=== PATIENT | female | born 1975 | race Hispanic/Latino ===

== ENCOUNTER 2023-07-13 22:08 | Observation (INO) | payer MEDICAID, SELFPAY ==
--- NOTE | ~2023-07-13 | CT_ITS ---
EXAMINATION: CT brain wo con DATE: 07/14/2023 00:23 INDICATION: Head injury. Weakness. TECHNIQUE: Computed tomography (CT) of the head was performed without intravenous contrast. The mA wa s adjusted according to patient size. Iterative reconstruction technique was employed. The dose-lengt h product was 605.33 mGy-cm. COMPARISON: None FINDINGS: There is no intracranial hemorrhage, acute infarction, or abnormal intracranial mass lesion . The ventricles are normal in size. There is mild mucosal thickening in the paranasal sinuses. The o rbits are normal. The mastoid air cells are normal. IMPRESSION: 1. Normal brain. Reviewed, dictated and finalized at location E. IMPRESSION: 1. Normal brain.
--- NOTE | ~2023-07-13 | XR_ITS ---
XR chest 2V DATE: 07/13/2023 23:56 INDICATION: Shortness of breath TECHNIQUE: AP and lateral views COMPARISON: None FINDINGS: Normal heart size. No hilar or mediastinal enlargement. No pulmonary infiltrate or consolid ation, pleural effusion or pulmonary vascular congestion or pneumothorax. IMPRESSION: No active cardiopulmonary disease Reviewed, dictated and finalized at location A.
[2023-07-13 22:06] VITALS: BP 141/97; PULSE 105; RESP 16; TEMP 36.3; O2SAT 97
--- NOTE | 2023-07-13 22:28 | ECG_ITS ---
Measurements Intervals [place] Rate: 102 P: 51 MN: 158 QRS: 68 QRSD: 102 T: 17 QT: 396 QTc: 516 Interpretive Statements SINUS TACHYCARDIA DELAYED PRECORDIAL R/S TRANSITION MINIMAL Q WAVES- INFERIOR LEADS BASELINE ARTIFACT- I, II, III, AVR, AVL, AVF BORDERLINE ECG NO PREVIOUS ECG AVAILABLE FOR COMPARISON Electronically Signed On 07-14-2023 7:48:10 CDT by Edmar Olivera D.O.
--- NOTE | 2023-07-13 23:03 | ED.FALL ---
HPI - Fall General Chief Complaint: Fall Stated Complaint: sob Time Seen by Provider: 07/13/23 22:28 Source: patient and old records reviewed Mode of arrival: EMS Limitations: no limitations and language barrier History of Present Illness HPI Narrative: Patient is a 48 y/o female who presents to the ED via EMS with report of weakness. Patient is primarily speaking. 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 Patient reports she slipped and fell 5 days ago after tripping on a curb. She did hit her head but denied LOC. She was seen in the ED at that time and had several other pain. Imaging was unremarkable. She was discharged back home. Since then, patient reports that she has been feeling extremely weak. She states her arms have been cramping and it feels like her legs will not work. She states she has been unable to get up and move around much due to the pain. She has been using a bedpan at home and having her neighbor bring over food for her. She denies any significant pain. Denies dizziness, lightheadedness, vision changes, focal weakness, numbness, nausea, vomiting, abdominal pain. Patient currently complains of chest tightness that began since being in the ED. Denies difficulty breathing, pleuritic pain, shortness of breath. Review of Systems Review of Systems: CONSTITUTIONAL: Denies fever, chills, or sweats. EYES: Denies visual changes. CARDIOVASCULAR: See HPI. RESPIRATORY: Denies cough or dyspnea. GASTROINTESTINAL: Denies abdominal pain, nausea, vomiting, or diarrhea. GENITOURINARY: Denies dysuria or hematuria. NEUROLOGIC: See HPI. All systems reviewed & are unremarkable except as noted in HPI and below Exam Narrative: GENERAL: Anxious appearing, well-nourished, non-toxic, in no acute distress. HEAD: Normocephalic, atraumatic. NECK: Supple. No adenopathy, no masses. RESPIRATORY: Airway patent, respirations nonlabored. Clear to auscultation bilaterally, no rales, rhonchi, wheezing. CARDIOVASCULAR: Regular rate and rhythm without murmurs, rubs, or gallops. Radial pulses 2+ and equal bilaterally. ABDOMINAL: Soft, no tenderness throughout abdomen, nondistended, no hepatosplenomegaly. Normoactive BS. MUSCULOSKELETAL: Moves all extremities. Strength/ROM intact without gross deformities. SKIN: Warm, dry, normal color. No rashes. NEURO: A&O X3. Speech clear. Cranial nerves II-XII grossly intact. Steady gait. No ataxic movements. Diffusely weak, difficulty even sitting up in ED bed. No focal weakness. Strength equal in upper and lower extremities bilaterally. Sensation intact. PSYCHIATRIC: Anxious, tearful. Normal interaction. Course Vital Signs Vital signs: Vital Signs Temperature 97.4 F L 07/13/23 22:06 Pulse Rate 105 H 07/13/23 22:06 Respiratory Rate 16 07/13/23 22:06 Blood Pressure 141/97 H 07/13/23 22:06 Pulse Oximetry 97 07/13/23 22:06 Oxygen Delivery Room Air 07/13/23 22:06 Temperature 97.4 F L 07/13/23 22:06 Pulse Rate 104 H 07/14/23 02:15 Respiratory Rate 15 07/14/23 02:15 Blood Pressure 142/96 H 07/14/23 02:15 Pulse Oximetry 100 07/14/23 02:15 Oxygen Delivery Room Air 07/13/23 22:06 MDM - Fall MDM Narrative Medical decision making narrative: Patient presented to ED 5 days status post head injury, reporting weakness, general malaise. Vital stable upon arrival. No focal deficits seen on exam. Patient mildly anxious and tearful. CT brain obtained as patient did not receive this when she was first evaluated after the fall. CT brain negative. EKG without concerning ST changes. Troponin negative. Chest x-ray interpreted by myself without acute abnormalities. CBC without significant abnormalities. No leukocytosis. CMP showing sodium 131, potassium 2.4, chloride low at 92. Stable kidney function. Magnesium within normal limits at 2.0. Transaminitis noted. Patient denying any abdominal pain, no tenderness on exam. IV and p.o. potassium started. Fluids ongoi
[2023-07-13 23:04] LABS: Basophils Percent Auto 0.3 % (0.2-1.2); Eosinophils Percent Auto 0.3 % (0-4.4); Hematocrit 36.2 % (37.0-47.0); Hemoglobin 12.8 g/dL (12.0-15.0); Immature Granulocyte Absolute 0.02 K/mm3 (0.00-0.031); Immature Granulocyte Percent A 0.2 % (0-0.5); Lymphocytes Percent Auto 12.6 % (18.3-44.2); Mean Corpuscular HGB Conc 35.4 g/dl (32-36); Mean Corpuscular Hemoglobin 34.6 pg (26-34); Mean Corpuscular Volume 97.8 fl (80-100); Mean Platelet Volume 9.6 fl (7.4-10.4); Monocytes Absolute Auto 0.5 K/mm3 (0.1-0.6); Monocytes Percent Auto 5.4 % (2.6-8.5); Neutrophils Absolute Auto 7.1 K/mm3 (1.3-6.7); Neutrophils Percent Auto 81.2 % (45.5-73.1); Platelet Count Result 267 k/mm3 (150-375); Red Cell Distribution Width 13.9 % (11.5-14.5); White Blood Count 8.7 K/mm3 (4.5-10.0)
[2023-07-13 23:14] LABS: Prothrombin Time 13.3 Seconds (11.1-14.7)
[2023-07-13 23:15] LABS: Partial Thromboplastin Time 34.1 SECONDS (22.3-36.8)
[2023-07-13 23:28] LABS: NT Pro B Type Natriuretic Pept 93 pg/mL (19.9-100)
[2023-07-13 23:48] LABS: D Dimer < 0.27 ug/mL (<0.48)
[2023-07-14] VITALS (8 sets, daily range): BP systolic 111–157; BP diastolic 68–97; PULSE 85–104; RESP 15–18; TEMP 35.8–36.3; O2SAT 100; BMI 22.9; BMI 22.5
[2023-07-14 00:03] LABS: Troponin I < 0.012 ng/mL (0.000-0.034)
[2023-07-14 01:08] LABS: Alanine Aminotransferase 39 U/L (6-35); Albumin Level 3.6 g/dL (3.5-5.1); Alkaline Phosphatase 163 U/L (38-126); Anion Gap 6 mmol/L (8-16); Aspartate Amino Transferase 86 U/L (14-36); Bilirubin,Total 1.2 mg/dL (0.2-1.3); Blood Urea Nitrogen 10 mg/dL (7-17); Calcium 8.7 mg/dL (8.4-10.2); Carbon Dioxide 33 mmol/L (22-30); Chloride 92 mmol/L (98-107); Estimated CRCL calculation 122 ml/min; Estimated Glomerular Filt Rate > 60; Glucose 110 mg/dL (65-110); Potassium 2.4 mmol/L (3.4-5.0); Sodium 131 mmol/L (137-145)
[2023-07-14] MEDS: POTASSIUM CHLORIDE INJ 40 MEQ in SODIUM CHLORIDE 0.9% IV 500 ML 130 MEQ IVPB (01:47)
[2023-07-14] MEDS: POTASSIUM CHLORIDE 20 MEQ ER TABLET 40 MEQ PO (02:12)
[2023-07-14] MEDS: SODIUM CHLORIDE 0.9% IV 1,000 ML 999 ML IV CONT (02:15)
--- NOTE | 2023-07-14 02:43 | PM.IMHP ---
H&P: HPI History of Present Illness Date/Time: 07/14/23 02:43 Chief Complaint: She is a very pleasant 48 years old female who is brought to the ER for evaluation by EMS with complaints of weakness. Patient had a ground level fall 5 days ago after tripping on a curb, she was seen in the ED at that time but no fractures were found and she was discharged home. Patient states that since then she has been feeling extremely weak. She has cramping of her arms and legs are very weak as well. She has was unable to move and get up due to pain and weakness. She has been using bed aaron at home and her neighbor is bringing over food for her. Workup was done in the ER which showed severe hypokalemia with potassium level of 2.4. She is complaining of some diarrhea for the last few days he is semi solid in nature, which could be the cause of her hypokalemia. She was started on IV and p.o. potassium and starting to feel a little better. She is being placed under observation for potassium replacement and further management. Review of Systems Review of Systems: All systems reviewed & are unremarkable except as noted in HPI and below Meds Vital Signs Vital Signs - 24 hr 07/13/23 22:06 07/14/23 02:15 Temperature 36.3 C L Pulse Rate 105 H 104 H Respiratory Rate 16 15 Blood Pressure 141/97 H 142/96 H Pulse Oximetry 97 100 Oxygen Delivery Room Air Exam Narrative: PHYSICAL EXAMINATION: Vital signs: Please see the chart General physical exam: patient feels tired and fatigued, complains of generalized weakness Head/eyes: Atraumatic, EOMI, PERRLA ENT: Moist mucous membranes, nasal passages clear Neck: Supple, full range of motion, trachea midline CVS: S1 + S2 + 0, regular rate and rhythm, no murmurs Respiratory: Bilaterally fair air entry in both lung cleaning, mild B/L crackles, symmetric chest expansion, no distress Abdomen: Soft, non-tender, bowel sounds +ve, no organomegaly Extremities: No clubbing, no cyanosis, no edema, no calf tenderness Musculoskeletal: Moves all, adequate range of motion, no muscle spasms Skin: Warm, dry, no jaundice, no cyanosis Neurological: Awake, alert, oriented x 3, cranial nerves II-XII intact, no focal neurological deficits Psychiatric: Normal mood, non suicidal H&P: Results Labs Labs: Short CBC 07/13/23 Range/Units 22:53 WBC 8.7 (4.5-10.0) K/mm3 Hgb 12.8 (12.0-15.0) g/dL Hct 36.2 L (37.0-47.0) % Plt Count 267 (150-375) k/mm3 BMP 07/13/23 07/13/23 07/13/23 22:53 22:53 22:53 Sodium Cancelled 131 L Potassium Cancelled 2.4 L* Chloride Cancelled Carbon Dioxide BUN Creatinine Glucose Calcium 07/13/23 07/13/23 07/13/23 22:53 22:53 22:53 Sodium Potassium Chloride 92 L Carbon Dioxide Cancelled 33 H BUN Cancelled 10 Creatinine Cancelled Glucose Calcium 07/13/23 07/13/23 07/13/23 22:53 22:53 22:53 Sodium Potassium Chloride Carbon Dioxide BUN Creatinine 0.40 L Glucose Cancelled 110 Calcium Cancelled 8.7 Cardiac Enzymes 07/13/23 Range/Units 22:53 Troponin I < 0.012 (0.000-0.034) ng/mL Liver Function 07/13/23 07/13/23 07/13/23 Range/Units 22:53 22:53 22:53 Total Bilirubin Cancelled 1.2 AST Cancelled 86 H ALT Cancelled Alkaline Phosphatase Albumin 07/13/23 07/13/23 07/13/23 Range/Units 22:53 22:53 22:53 Total Bilirubin AST ALT 39 H Alkaline Phosphatase Cancelled 163 H Albumin Cancelled 3.6 Assessment and Plan Assessment and plan (1) Acute hypokalemia: Code(s): E87.6 - Hypokalemia Status: Acute (2) Weakness: Code(s): R53.1 - Weakness Status: Acute (3) Diarrhea: Qualifiers: Diarrhea type: unspecified type Qualified Code(s): R19.7 - Diarrhea, unspecified Code(s): R19.7 - Diarrhea, unspecified Status: Acute Plan Place patient
--- NOTE | 2023-07-14 04:00 | ADMGEN ---
This patient, shankar Mcginnis, was admitted to [facility] Surg Room 305-01 at 0325. Patient/family oriented to hospital policies and general routines including ID bracelet, bed and alarms, visiting hours, pain management, procedures, bathroom and other care routines, personal items, smoking policy, room service/diet, and visiting hours. Information on how to activate the Rapid Response Team has been discussed. Patient/Family are encouraged to report perceived risks to care and to ask questions if they do not understand what they are told or what they should do.
[2023-07-14 05:34] LABS: Toxigenic C. Diff POSITIVE (NEGATIVE)
[2023-07-14] MEDS: KCL 20MEQ/0.9% SOD CHL 1,000 ML 100 ML IV CONT ×2 (06:43→18:29)
[2023-07-14] MEDS: VANCOMYCIN ORAL 125 MG/2.5 ML SYRUP PO ×3 (06:43→17:38)
[2023-07-14] MEDS: metroNIDAZOLE 500 MG/ISO 100ML 500 MG/100 ML BAG 100 MG IVPB ×3 (06:43→21:54)
[2023-07-14 07:57] LABS: Anion Gap 5 mmol/L (8-16); Blood Urea Nitrogen 8 mg/dL (7-17); Calcium 7.7 mg/dL (8.4-10.2); Carbon Dioxide 24 mmol/L (22-30); Chloride 106 mmol/L (98-107); Estimated CRCL calculation 155 ml/min; Estimated Glomerular Filt Rate > 60; Glucose 105 mg/dL (65-110); Potassium 3.5 mmol/L (3.4-5.0); Sodium 135 mmol/L (137-145)
[2023-07-14] MEDS: GABAPENTIN 300 MG CAPSULE PO (07:59)
[2023-07-14] MEDS: FERROUS SULFATE 325 MG TABLET DR PO (07:59)
[2023-07-14] MEDS: DULoxetine HCL 30 MG CAPSULE.DR PO (07:59)
[2023-07-14] MEDS: ACETAMINOPHEN 325 MG TABLET 650 MG PO ×3 (07:59→17:38)
[2023-07-14] MEDS: LOPERAMIDE HCL 2 MG CAPSULE PO (11:51)
--- NOTE | 2023-07-14 12:33 | PM.IMPN ---
Progress Note: A&P Assessment and Plan (1) Acute hypokalemia: Code(s): E87.6 - Hypokalemia Status: Acute Assessment and Plan: status post IV and oral replacement, check with daily labs, check magnesium as well (2) Weakness: Code(s): R53.1 - Weakness Status: Acute Assessment and Plan: related to neuropathic pain and decreased sensation. Patient benefit intense therapy. PT OT ordered. (3) Diarrhea: Qualifiers: Diarrhea type: unspecified type Qualified Code(s): R19.7 - Diarrhea, unspecified Code(s): R19.7 - Diarrhea, unspecified Status: Acute Assessment and Plan: C diff positive. Patient is on oral vancomycin. (4) Clostridium difficile diarrhea: Code(s): A04.72 - Enterocolitis due to Clostridium difficile, not specified as recurrent Status: Acute (5) Peripheral neuropathy: Code(s): G62.9 - Polyneuropathy, unspecified Status: Acute Plan Patient needs assistance to stand and transition from bed to chair and back, related to neuropathy. Patient will need addition therapy after acute hospitalization PT/OT consult/treat Potassium replaced, daily labs ordered ? Patient seen and examined at bedside ? Collaborated with patient's nurse at the bedside in detail and addressed all concerns ? Labs, electrolytes, radiology, investigations and test results reviewed ? ED/Consult/Nursing/Ancilliary notes on the chart reviewed and appreciated Time Spent With Patient Time with patient: 25 - 35 minutes Subjective Date/time seen: 07/14/23 12:33 Interval history: Patient denies any pain, she is still having diarrheal stools, patient reports difficulty standing and walking related to neuropathic pain in her feet. Seems like patient would benefit therapy after discharge. Review of Systems Review of Systems: All systems reviewed & are unremarkable except as noted in HPI and below Exam Narrative: PHYSICAL EXAMINATION: General physical exam: patient feels tired and fatigued, complains of generalized weakness Head/eyes: Atraumatic, EOMI, PERRLA ENT: Moist mucous membranes, nasal passages clear Neck: Supple, full range of motion, trachea midline CVS: S1 + S2, regular rate and rhythm, no murmurs Respiratory: Bilaterally fair air entry in both lung cleaning, mild B/L crackles, symmetric chest expansion, no distress Abdomen: Soft, non-tender, bowel sounds, no organomegaly Extremities: No clubbing, no cyanosis, no edema, no calf tenderness Musculoskeletal: Moves all, adequate range of motion, no muscle spasms Skin: Warm, dry, no jaundice, no cyanosis Neurological: Awake, alert, oriented x 3, cranial nerves II-XII intact, Weakness with standing and ambulating to the bed which patient blames on her neuropathy Psychiatric: Normal mood, non suicidal Objective Data Vital Signs Vital Signs: Vital Signs - 24 hr 07/13/23 22:06 07/14/23 02:15 07/14/23 03:52 Temperature 36.3 C L 35.8 C L Pulse Rate 105 H 104 H 91 Respiratory Rate 16 15 16 Blood Pressure 141/97 H 142/96 H 157/97 H Pulse Oximetry 97 100 100 Oxygen Delivery Room Air 07/14/23 05:07 07/14/23 04:00 07/14/23 07:55 Temperature Pulse Rate 94 Respiratory Rate Blood Pressure Pulse Oximetry Oxygen Delivery Room Air Room Air 07/14/23 10:30 07/14/23 08:00 Temperature Pulse Rate 102 H Respiratory Rate Blood Pressure Pulse Oximetry Oxygen Delivery Room Air Intake/Output Intake/Output: Intake & Output 07/11/23 07/12/23 07/13/23 07/14/23 23:59 23:59 23:59 23:59 Intake Total 880 Output Total 0 Balance 880 Meds/Results Medications: Active Medications Generic Name Dose Route Start Last Admin Trade Name Freq PRN Reason Stop Dose Admin Acetaminophen 650 mg 07/14/23 02:57 07/14/23 11:50 Acetaminophen 325 Mg Tablet PO 650 mg Q4H PRN Administration Mild Pain (1-3) or Fever Duloxetine HCl 30
[2023-07-14 14:37] LABS: Anion Gap 7 mmol/L (8-16); Blood Urea Nitrogen 7 mg/dL (7-17); Calcium 8.2 mg/dL (8.4-10.2); Carbon Dioxide 24 mmol/L (22-30); Chloride 105 mmol/L (98-107); Estimated CRCL calculation 122 ml/min; Estimated Glomerular Filt Rate > 60; Glucose 125 mg/dL (65-110); Potassium 3.6 mmol/L (3.4-5.0); Sodium 136 mmol/L (137-145)
[2023-07-15] VITALS (7 sets, daily range): BP systolic 126–149; BP diastolic 71–94; PULSE 83–102; RESP 14–20; TEMP 35.7–36.9; O2SAT 100
[2023-07-15] MEDS: VANCOMYCIN ORAL 125 MG/2.5 ML SYRUP PO ×4 (00:25→17:18)
[2023-07-15 01:34] LABS: Appearance Urine Clear (Clear); Bilirubin Urine Negative (Negative); Blood Urine Negative (Negative); Color Urine Yellow (Yellow); Glucose Urine UA Negative (Negative); Ketones Urine Negative (Negative); Leukocyte Esterase Ur Negative LEU/UL (Negative); Nitrate Urine Negative (Negative); Protein Urine Negative (Negative); Specific Grav Ur 1.012 (1.001-1.035); Urobilinogen Urine 0.2 mg/dL (<2.0)
[2023-07-15 01:40] LABS: Add Urine Microscopic? NO
[2023-07-15] MEDS: metroNIDAZOLE 500 MG/ISO 100ML 500 MG/100 ML BAG 100 MG IVPB ×3 (05:41→20:48)
[2023-07-15 06:43] LABS: Basophils Percent Auto 0.9 % (0.2-1.2); Eosinophils Absolute Auto 0.1 K/mm3 (0-0.3); Eosinophils Percent Auto 2.7 % (0-4.4); Hematocrit 33.4 % (37.0-47.0); Hemoglobin 11.2 g/dL (12.0-15.0); Immature Granulocyte Absolute 0.01 K/mm3 (0.00-0.031); Immature Granulocyte Percent A 0.3 % (0-0.5); Lymphocytes Absolute Auto 0.91 K/mm3 (0.9-3.2); Lymphocytes Percent Auto 27.2 % (18.3-44.2); Mean Corpuscular HGB Conc 33.5 g/dl (32-36); Mean Corpuscular Hemoglobin 34.8 pg (26-34); Mean Corpuscular Volume 103.7 fl (80-100); Mean Platelet Volume 9.4 fl (7.4-10.4); Monocytes Absolute Auto 0.2 K/mm3 (0.1-0.6); Monocytes Percent Auto 6.6 % (2.6-8.5); Neutrophils Absolute Auto 2.1 K/mm3 (1.3-6.7); Neutrophils Percent Auto 62.3 % (45.5-73.1); Platelet Count Result 214 k/mm3 (150-375); Red Blood Count 3.22 M/mm3 (4.2-5.4); Red Cell Distribution Width 14.6 % (11.5-14.5); White Blood Count 3.3 K/mm3 (4.5-10.0)
[2023-07-15 06:52] LABS: Alanine Aminotransferase 27 U/L (6-35); Albumin Level 2.8 g/dL (3.5-5.1); Alkaline Phosphatase 115 U/L (38-126); Anion Gap 6 mmol/L (8-16); Aspartate Amino Transferase 45 U/L (14-36); Bilirubin,Total 0.7 mg/dL (0.2-1.3); Blood Urea Nitrogen 3 mg/dL (7-17); Calcium 8.1 mg/dL (8.4-10.2); Carbon Dioxide 23 mmol/L (22-30); Chloride 107 mmol/L (98-107); Estimated CRCL calculation 122 ml/min; Estimated Glomerular Filt Rate > 60; Glucose 93 mg/dL (65-110); Potassium 3.3 mmol/L (3.4-5.0); Sodium 136 mmol/L (137-145)
[2023-07-15] MEDS: FERROUS SULFATE 325 MG TABLET DR PO (08:53)
[2023-07-15] MEDS: GABAPENTIN 300 MG CAPSULE PO (08:53)
[2023-07-15] MEDS: DULoxetine HCL 30 MG CAPSULE.DR PO (08:53)
[2023-07-15] MEDS: POTASSIUM CHLORIDE 20 MEQ ER TABLET 40 MEQ PO (08:53)
[2023-07-15] MEDS: KCL 20MEQ/0.9% SOD CHL 1,000 ML 100 ML IV CONT ×2 (11:14→20:48)
--- NOTE | 2023-07-15 11:49 | PM.IMPN ---
Progress Note: A&P Assessment and Plan (1) Acute hypokalemia: Code(s): E87.6 - Hypokalemia Status: Acute Assessment and Plan: status post IV and oral replacement, check with daily labs, check magnesium as well (2) Weakness: Code(s): R53.1 - Weakness Status: Acute Assessment and Plan: related to neuropathic pain and decreased sensation. Patient benefit intense therapy. PT OT ordered. Patient reportedly unable to afford acute rehabilitation or home health that she has no insurance coverage and does not qualify for Medicaid. (3) Diarrhea: Qualifiers: Diarrhea type: unspecified type Qualified Code(s): R19.7 - Diarrhea, unspecified Code(s): R19.7 - Diarrhea, unspecified Status: Acute Assessment and Plan: C diff positive. Patient is on oral vancomycin. Decreased amount of diarrheal stools and no abdominal pain (4) Clostridium difficile diarrhea: Code(s): A04.72 - Enterocolitis due to Clostridium difficile, not specified as recurrent Status: Acute Assessment and Plan: Oral vancomycin for total 10 days of therapy (5) Peripheral neuropathy: Code(s): G62.9 - Polyneuropathy, unspecified Status: Acute Assessment and Plan: Affects both lower and upper extremities, no wounds or vascular concerns. Plan Patient needs assistance to stand and transition from bed to chair and back, related to neuropathy. Patient will need addition therapy after acute hospitalization PT/OT consult/treat Potassium replaced, daily labs ordered ? Patient seen and examined at bedside ? Collaborated with patient's nurse at the bedside in detail and addressed all concerns ? Labs, electrolytes, radiology, investigations and test results reviewed ? ED/Consult/Nursing/Ancilliary notes on the chart reviewed and appreciated Unfortunately patient does not qualify for Medicaid coverage and does not have any health insurance. She does not have primary care so she will be referred to on-call primary care upon discharge. Patient cannot afford intense rehabilitation or even home health. Time Spent With Patient Time with patient: 25 - 35 minutes Subjective Date/time seen: 07/15/23 11:49 Interval history: Patient reports no pain, only 1 diarrheal stool, she feels fine except for difficulty ambulating and using her hands related to neuropathy. Patient is not able to afford rehabilitation placement. Her son states that he will purchase the necessary antibiotics with [facility] but is unable to afford prolonged therapy. Patient does not have a primary care provider. She will be referred to on-call provider upon discharge. Anticipated discharge 07/16. Review of Systems Review of Systems: All systems reviewed & are unremarkable except as noted in HPI and below Exam Narrative: PHYSICAL EXAMINATION: General physical exam: patient feels tired and fatigued, complains of generalized weakness Head/eyes: Atraumatic, EOMI, PERRLA ENT: Moist mucous membranes, nasal passages clear Neck: Supple, full range of motion, trachea midline CVS: S1 + S2, regular rate and rhythm, no murmurs Respiratory: Bilaterally fair air entry in both lung cleaning, mild B/L crackles, symmetric chest expansion, no distress Abdomen: Soft, non-tender, bowel sounds, no organomegaly Extremities: No clubbing, no cyanosis, no edema, no calf tenderness Musculoskeletal: Moves all, adequate range of motion, no muscle spasms Skin: Warm, dry, no jaundice, no cyanosis Neurological: Awake, alert, oriented x 3, cranial nerves II-XII intact, Weakness with standing and ambulating to the bed which patient blames on her neuropathy Psychiatric: Normal mood, non suicidal Objective Data Vital Signs Vital Signs: Vital Signs - 24 hr 07/14/23 12:00 07/14/23 12:53 07/14/23 14:00 Temperature 36.3 C L Pulse Rate 87 93 Respiratory Rate 16 Blood Pressure 148/93 H Pulse Oximetry 100 Oxyge
[2023-07-15 23:10] LABS: Glucose Point of Care 131 mg/dl (65-105)
[2023-07-16] VITALS: PULSE 93
[2023-07-16 04:00] VITALS: PULSE 87
[2023-07-16 06:00] VITALS: BP 145/89; PULSE 90; RESP 16; TEMP 36.9; O2SAT 100
[2023-07-16] MEDS: VANCOMYCIN ORAL 125 MG/2.5 ML SYRUP PO ×3 (06:12→12:57)
[2023-07-16 06:35] LABS: Basophils Percent Auto 0.5 % (0.2-1.2); Eosinophils Absolute Auto 0.1 K/mm3 (0-0.3); Hematocrit 33.9 % (37.0-47.0); Immature Granulocyte Absolute 0.01 K/mm3 (0.00-0.031); Immature Granulocyte Percent A 0.3 % (0-0.5); Lymphocytes Absolute Auto 0.99 K/mm3 (0.9-3.2); Lymphocytes Percent Auto 26.9 % (18.3-44.2); Mean Corpuscular HGB Conc 32.4 g/dl (32-36); Mean Corpuscular Hemoglobin 33.8 pg (26-34); Mean Corpuscular Volume 104.3 fl (80-100); Mean Platelet Volume 9.5 fl (7.4-10.4); Monocytes Absolute Auto 0.2 K/mm3 (0.1-0.6); Monocytes Percent Auto 4.6 % (2.6-8.5); Neutrophils Absolute Auto 2.4 K/mm3 (1.3-6.7); Neutrophils Percent Auto 64.7 % (45.5-73.1); Platelet Count Result 238 k/mm3 (150-375); Red Blood Count 3.25 M/mm3 (4.2-5.4); Red Cell Distribution Width 14.6 % (11.5-14.5); White Blood Count 3.7 K/mm3 (4.5-10.0)
[2023-07-16 06:52] LABS: Alanine Aminotransferase 27 U/L (6-35); Albumin Level 2.7 g/dL (3.5-5.1); Alkaline Phosphatase 115 U/L (38-126); Anion Gap 5 mmol/L (8-16); Aspartate Amino Transferase 60 U/L (14-36); Bilirubin,Total 0.7 mg/dL (0.2-1.3); Calcium 8.2 mg/dL (8.4-10.2); Carbon Dioxide 22 mmol/L (22-30); Chloride 110 mmol/L (98-107); Estimated CRCL calculation 100 ml/min; Estimated Glomerular Filt Rate > 60; Glucose 97 mg/dL (65-110); Potassium 4.1 mmol/L (3.4-5.0); Sodium 137 mmol/L (137-145)
[2023-07-16] MEDS: metroNIDAZOLE 500 MG/ISO 100ML 500 MG/100 ML BAG 100 MG IVPB (06:54)
[2023-07-16 06:55] LABS: Blood Urea Nitrogen < 2 mg/dL (7-17)
[2023-07-16] MEDS: DULoxetine HCL 30 MG CAPSULE.DR PO (09:06)
[2023-07-16] MEDS: FERROUS SULFATE 325 MG TABLET DR PO (09:06)
[2023-07-16] MEDS: GABAPENTIN 300 MG CAPSULE PO (09:06)
--- NOTE | 2023-07-16 09:17 | PM.DS ---
DS: Admitting Diagnosis Discharge Date 07/16/2023 Admitting Diagnosis Acute hypokalemia, weakness, diarrhea DS: Discharge Diagnosis Discharge Diagnosis (1) Acute hypokalemia: Code(s): E87.6 - Hypokalemia Status: Acute (2) Weakness: Code(s): R53.1 - Weakness Status: Acute (3) Diarrhea: Qualifiers: Diarrhea type: unspecified type Qualified Code(s): R19.7 - Diarrhea, unspecified Code(s): R19.7 - Diarrhea, unspecified Status: Acute (4) Clostridium difficile diarrhea: Code(s): A04.72 - Enterocolitis due to Clostridium difficile, not specified as recurrent Status: Acute (5) Peripheral neuropathy: Code(s): G62.9 - Polyneuropathy, unspecified Status: Acute Plan Patient not agreeable to skilled rehab/home health upon discharge. Reportedly has medical insurance coverage but still declines further therapy services outside hospital stay. DS: Summary Hospital Course Reason for hospitalization: patient was admitted due to diarrhea with hypokalemia that was profound Hospital Course: Upon admission patient was found to be positive for C diff. she was treated with IV Flagyl and oral vancomycin. Physical therapy and occupational therapy were involved because patient seemed to be having difficulty transferring and ambulating due to peripheral neuropathy. Patient stated that this has been a challenge for a long time. She participated with therapy but adamantly refused home health or SNF/inpatient rehab. She states that she has plenty of family support. Her son stated that he would cover the cost of oral vancomycin and a good Rx prescription card was provided by Case Management. It is anticipated that the cost will be approximately 50 dollars. Patient reports that diarrhea has improved since hospitalization. Loperamide was discontinued to prevent toxic megacolon. Patient did not have any abdominal pain or abdominal tenderness throughout hospitalization. Her electrolytes improved with replacement. Status at Discharge Cognitive/behavioral status at discharge: awake alert oriented and pleasant Functional status at discharge: uses cane/walker Overall status at discharge: patient is not back to baseline Time Spent with Patient Time attestation: Total time spent providing and/or coordinating discharge services: Exam Narrative: General physical exam: patient appears tired and fatigued, complains of generalized weakness Head/eyes: Atraumatic, EOMI, PERRLA ENT: Moist mucous membranes, nasal passages clear Neck: Supple, full range of motion, trachea midline CVS: S1 + S2, regular rate and rhythm, no murmurs Respiratory: Bilaterally fair air entry in both lung cleaning, mild B/L crackles, symmetric chest expansion, no distress Abdomen: Soft, non-tender, bowel sounds, no organomegaly Extremities: No clubbing, no cyanosis, no edema, no calf tenderness Musculoskeletal: Moves all, adequate range of motion, no muscle spasms Skin: Warm, dry, no jaundice, no cyanosis Neurological: Awake, alert, oriented x 3, cranial nerves II-XII intact, Weakness with standing and ambulating to the bed which patient blames on her neuropathy Psychiatric: Normal mood, non suicidal DS: Data Data Completed and Pending Completed studies during hospitalization: Head CT, chest x-ray Labs on day of discharge: Labs from last 24 hours 07/16/23 07/15/23 05:57 23:02 WBC 3.7 L RBC 3.25 L Hgb 11.0 L Hct 33.9 L MCV 104.3 H MCH 33.8 MCHC 32.4 RDW 14.6 H Plt Count 238 MPV 9.5 Immature Gran % (Auto) 0.3 Neut % (Auto) 64.7 Lymph % (Auto) 26.9 [place] % (Auto) 4.6 Eos % (Auto) 3.0 Baso % (Auto) 0.5 Lymph # (Auto) 0.99 [place] # (Auto) 0.2 Eos # (Auto) 0.1 Baso # (Auto) 0.0 Abs Immat Gran (auto) 0.01 Absolute Neuts (auto) 2.4 Absolute Nucleated RBC 0.0 Nucleated RBC % 0.0 Sodium 137 Potassium 4.1 Chloride 110 H Carbon Dioxide
[2023-07-16 13:49] VITALS: BP 125/80; PULSE 92; RESP 16; TEMP 36.6; O2SAT 100
--- NOTE | 2023-07-20 13:12 | PC.NURSE ---
Patient's son called and stated that Vancomycin on discharge has not been received. This RN called [facility] pharmacy for clarification. Per pharmacist, IV solution formula was sent instead of capsules. This RN clarified medication with discharging hospitalist. Medication order to note, Vancomycin 125 mg capsule po Q6H x 10 days. Medication available at [facility] in [place] per [facility]. Medication transmitted. This RN attempted to reach son to update with medication status. No answer and voicemail left to return call.
== END 2023-07-16 14:10 | disposition home or self-care (01) ==
LOC: ANHED 07-14 02:40 → ANH3MEDSUR 07-15 10:42
PROVIDERS: Nurse Practitioner; Admitting Provider Family Medicine; Emergency Provider Physician Assistant; PCP Registered Nurse; Visit Provider Internal Medicine
DX: E87.6 Hypokalemia (principal); R53.1 Weakness; R19.7 Diarrhea, unspecified; A04.72 Enterocolitis due to Clostridium difficile, not specified as recurrent; G62.9 Polyneuropathy, unspecified; S09.90XA Unspecified injury of head, initial encounter; W01.198A Fall on same level from slipping, tripping and stumbling with subsequent striking against other object, initial encounter; Y92.9 Unspecified place or not applicable; E87.8 Other disorders of electrolyte and fluid balance, not elsewhere classified; R06.02 Shortness of breath; R94.31 Abnormal electrocardiogram [ECG] [EKG]; E87.1 Hypo-osmolality and hyponatremia
CPT/HCPCS: 36415; 70450; 71046; 80048; 80053; 81003; 82948; 83735; 83880; 84100; 84484; 85025; 85380; 85610; 85730; 87045; 87427; 87449; 87493; 93005; 96361; 96365; 96366; 96367; 96374; 97116; 97161; 97165; 97530; 97535; 99285; A9270; G0378; G0379; J1836; J3480; J7030; J7040

== ENCOUNTER 2024-10-20 14:51 | Emergency (ER) | payer MEDICAID, SELFPAY ==
--- NOTE | 2024-10-20 14:58 | ED.FEMALEGU ---
HPI - Female Genitourinary General Chief complaint: Urogenital-Female Stated complaint: Vaginal Problems/UTI Time Seen by Provider: 10/20/24 14:58 Source: patient, RN notes reviewed and old records reviewed Mode of arrival: ambulatory Limitations: no limitations History of Present Illness HPI Narrative: Patient presents accompanied by her son. She complains of 3 or 4 days of urinary frequency and burning, left-sided back and pelvic pain. She reports urine is dark. Pain only with urination. She denies any fever, chills, sweats. She has not been taking anything for her symptoms. She voices no other concerns or complaints at this time. Denies any injury or trauma Related Data Home Medications ?Medication ?Instructions ?Recorded ?Confirmed ?Last Taken ?Type gabapentin 300 mg capsule 300 mg PO DAILY 07/14/23 07/14/23 Unknown History Allergies Allergy/AdvReac Type Severity Reaction Status Date / Time No Known Allergies Allergy Verified 10/20/24 15:03 Review of Systems Review of Systems: All systems reviewed & are unremarkable except as noted in HPI and below Constitutional: Constitutional: Reports no additional constitutional complaints ENT: Reports system reviewed and no additional complaints, except as documented Cardiovascular: Cardiovascular: Reports no additional cardiovascular complaints Respiratory: Respiratory: Reports no additional respiratory complaints Gastrointestinal: Gastrointestinal: Reports no additional gastrointestinal complaints Genitourinary: Genitourinary: Reports as per HPI, Reports nocturia, Reports dysuria, Reports pelvic pain, Reports flank pain and Reports urinary urgency [facility] Past Medical History Medical History Peripheral neuropathy Social History Social History Smoking status: Never smoker Alcohol intake: former Substance use: never Lack of Transportation: No Lack of Food: Never True Current Housing: I Have Housing Concerned About Future Housing: No Difficulty Paying Gas/Electric Bills: No Difficulty Paying for Meds: No Currently Unemployed: No Education: Grade School Difficulty w/ Childcare or Family Care: No Spiritual care concerns: No Comments At the time of my signature, I reviewed and agree with the nursing past medical, surgical, social, and family history. There is no relevant family history pertinent to the patient complaint. Exam Const: General: cooperative, no acute distress, alert and awake Orientation/consciousness: oriented to person, oriented to place and oriented to time HENMT: Head: normal to inspection Mouth: Yes moist mucous membranes Resp: Effort & Inspection: normal respiratory effort and able to speak in complete sentences Auscultation: clear to auscultation bilaterally, no crackles, no rales, no rhonchi and no wheezes Cardio: Palpation: normal PMI Rate: regular rate Rhythm: regular rhythm Heart sounds: S1 normal heart sound present and S2 normal heart sound present : General: Yes bladder normal to palpation and Yes no CVA tenderness Neuro: General: oriented to person, oriented to place and oriented to time Cranial nerves: Yes CN's II-XII intact bilaterally Psych: Appearance: grossly normal Thought process: Normal thought process present Insight: Good insight present (Psych) Judgement: Good judgement present (Psych) Course Course Level of Care: Express Care Visit Vital Signs Vital signs: Vital Signs Temperature 97.7 F 10/20/24 15:00 Pulse Rate 118 H 10/20/24 15:00 Respiratory Rate 20 10/20/24 15:00 Blood Pressure 140/92 H 10/20/24 15:00 Pulse Oximetry 100 10/20/24 15:00 Oxygen Delivery Room Air 10/20/24 15:00 Temperature 97.7 F 10/20/24 15:00 Pulse Rate 118 H 10/20/24 15:00 Respiratory Rate 20 10/20/24 15:00 Blood Pressure 140/92 H 10/20/24 15:00 Pulse Oximetry 100 10/20/24 15:00 Oxygen Delivery Room Air 10/20/24 15:00 Reviewed MDM - Female Genitourinary MDM Narrative Medical decision making narrative: Reassuring physical exam. UA consistent with UTI. Elevated heart rate is noted. Patient reports that she is very nervous. She is nontoxic appearing and stable for discharge home Discharge instructions reviewed with patient, as well as provided in writing per nursing staff. The instructions also include specific and strict return/GO TO THE ER as well as f/u information. All questions have been answered, and the patient deny any further questions with discharge and discharge plan. Some parts of this dictation were generated by voice recognition software and may contain typographical and/or grammatical inaccuracies. Differential Diagnosis Differential diagnosis: Likely urinary tract infection and cystitis Medical Records Attestation: I reviewed the patient's medical records. Lab Data Attestation: I reviewed the patient's lab results. Labs: Lab Results 10/20/24 Range/Units 15:00 POC Urine Color Jade POC Urine Clarity Cloudy POC Urine pH 5.5 POC Ur Specif [place] 1.030 POC Urine Protein 2+ (Negative) POC Ur Glucose (UA) Negative (Negative) POC Urine Ketones 1+ (Negative) POC Urine Blood Negative (Negative) POC Urine Nitrite Positive (Negative) POC Urine Bilirubin 2+ (Negative) POC Urine Urobilinogen 2.0 POC U Leukocyte Esteras Negative (Negative) Discharge Plan Discharge Clinical Impression: UTI (urinary tract infection) Patient Disposition: Home, Self-Care Condition: Stable Instructions: Antibiotic Form, Urinary Tract Infection in Women (ED) Additional Instructions: Take medication as prescribed. Follow with primary care provider. Emergency department for new or worse symptoms Patient Language: Cymraes Prescriptions: New nitrofurantoin monohyd/m-cryst [Macrobid] 100 mg capsule 100 mg PO Q12H 5 Days Qty: 10 0RF Rx Instructions: must administer with a meal/food No Action gabapentin 300 mg capsule 300 mg PO DAILY Follow-up/Referrals: Sneha,WILBERT Arnold [Primary Care Provider] - 1 Week Time of Disposition: 15:23
[2024-10-20 15:00] VITALS: BP 140/92; PULSE 118; RESP 20; TEMP 36.5; O2SAT 100
[2024-10-20 19:44] LABS: EDUAAPPEAR Cloudy; EDUABILI 2+ (Negative); EDUABLOOD Negative (Negative); EDUACOLOR1 Amber; EDUAGLUCOSE Negative (Negative); EDUAKETONE 1+ (Negative); EDUALEUKO Negative (Negative); EDUANITRATE Positive (Negative); EDUAPH 5.5; EDUAPROTEIN 2+ (Negative)
== END 2024-10-20 15:30 | disposition home or self-care (01) ==
PROVIDERS: Emergency Provider Nurse Practitioner Family; PCP Registered Nurse
DX: N39.0 Urinary tract infection, site not specified (principal); B96.1 Klebsiella pneumoniae [K. pneumoniae] as the cause of diseases classified elsewhere
CPT/HCPCS: 81003; 87077; 87086; 87186; 99213; G0463

== ENCOUNTER 2025-05-04 13:01 | Emergency (ER) | payer SELFPAY ==
[2025-05-04 13:10] VITALS: BP 125/90; PULSE 93; RESP 18; TEMP 36.2; O2SAT 98
--- NOTE | 2025-05-04 13:35 | ED_ITS ---
HPI - Dental/Oral General Chief complaint: Dental/Oral Stated complaint: sore mouth Time Seen by Provider: 05/04/25 13:03 Source: patient Mode of arrival: ambulatory Limitations: no limitations History of Present Illness HPI Narrative: Patient is a 50-year-old female who presents with pain and sores in mouth. Patient had all of her teeth removed and had to screws implanted for future permanent denture placement. Patient states they also scraped her gumline on the bottom teeth and is having pain on gums. Most pain is upper front gums for there is a sore from bottom teeth hitting gums. Area is swollen and red. Related Data Home Medications ?Medication ?Instructions ?Recorded ?Confirmed ?Last Taken ?Type gabapentin 300 mg capsule 300 mg PO DAILY 07/14/23 07/14/23 Unknown History Allergies Allergy/AdvReac Type Severity Reaction Status Date / Time No Known Allergies Allergy Verified 05/04/25 13:02 Review of Systems 2 Review of Systems: All systems reviewed & are unremarkable except as noted in HPI and below Constitutional: Constitutional: Denies body ache(s), Denies fever(s), Denies headache(s), Denies malaise and Denies weakness Eyes: Eyes: Denies loss of vision ENT: Denies otalgia, Reports facial pain (jaw), Denies headache(s), Denies nasal discharge, Denies sinus pain and Denies sore throat Cardiovascular: Cardiovascular: Denies chest pain, Denies irregular heart rhythm and Denies dyspnea Respiratory: Respiratory: Denies dyspnea Gastrointestinal: Gastrointestinal: Denies abdominal pain, Denies melena, Denies hematochezia, Denies diarrhea, Denies nausea and Denies vomiting Musculoskeletal: Musculoskeletal: Denies back pain, Denies myalgias and Denies arthralgias Integumentary/Breasts: Skin/Breast: Denies pruritus and Denies rash Neurologic: Denies headache(s), Denies loss of vision and Denies weakness Psychiatric: Psychiatric: Reports no additional psychiatric complaints PMFSH Past Medical History Medical History Peripheral neuropathy Social History Social History Smoking status: Never smoker Alcohol intake: former Substance use: never Lack of Transportation: No Lack of Food: Never True Current Housing: I Have Housing Concerned About Future Housing: No Difficulty Paying Gas/Electric Bills: No Difficulty Paying for Meds: No Currently Unemployed: No Education: Grade School Difficulty w/ Childcare or Family Care: No Spiritual care concerns: No Comments At time of signature, agree with nursing past medical, surgical, social and family history. There is no relevant family history pertinent to the presenting complaint. Exam 2 Const: General: cooperative, healthy appearing, comfortable, no acute distress and well nourished Nutritional Appearance: well nourished O rientation/consciousness: patient oriented x3 Limitations: no limitations HENMT: Head: normal to inspection, normocephalic and atraumatic Ears: h earing grossly normal bilaterally, external ears normal, TM's normal bilaterally and mastoids normal bilaterally Face/Nose/Sinus: Normal external nose present, normal facial exam and face symmetric Face and sinus: normal facial exam and face symmetric Mouth: Yes Normal oral and palatal mucosa present, Yes lip normal, Yes tongue normal, Yes Normal salivary glands and ducts present and Yes moist mucous membranes Teeth and gingiva: gingiva abnormal edematous and tender and poor dentition Teeth image: 1. Sore on gums with erythema, swelling All upper teeth absent Other: The tooth in question is very carious and the gum is swollen and tender around it. There is no facial swelling, cervical or submandibular lymphadenopathy. The patient appears uncomfortable and in pain. Eyes: General: appearance normal, both eyes and all related structures A lignment and Position: alignment normal and position normal Periorbital: p eriorbital findings normal Eyelids: eyelids normal Pupils: Equal, round and reactive pupils present EOM: EOMs intact bilaterally Neck: Neck: normal visual inspection, full ROM, no lymphadenopathy and supple Chest: Chest palpation & inspection: normal inspection of the chest Resp: Effort & Inspection: normal respiratory effort and able to speak in complete sentences Auscultation: clear to auscultation bilaterally Cardio: Rate: regular rate Rhythm: regular rhythm Heart sounds: S1 normal heart sound present and S2 normal heart sound present GI: Inspection: normal to inspection Skin: General skin exam: normal color and no rashes or lesions noted Neuro: General: patient oriented x3 and moves all extremities Cranial nerves: Yes Equal, round and reactive pupils present Speech: normal speech Gait exam (Neuro): Normal gait present Extrem: General: normal to inspection, full ROM and no edema Psych: Appearance: grossly normal and well kempt Mental Status: mental status grossly normal Speech and movement: Normal speech and movement present Affect: normal affect Attitude: cooperative Thought process: Normal thought process present Course Course Emergency Course: Patient is aware of diagnosis, understands and agrees to treatment plan. Anticipatory guidance given. Patient agrees to follow-up as directed and is aware of reasons to seek care at the emergency department. Portions of this record may have been created with voice recognition software Level of Care: Express Care Visit Vital Signs Vital signs: Vital Signs Temperature 36.2 C L 05/04/25 13:10 Pulse Rate 93 05/04/25 13:10 Respiratory Rate 18 05/04/25 13:10 Blood Pressure 125/90 05/04/25 13:10 Pulse Oximetry 98 05/04/25 13:10 Oxygen Delivery Room Air 05/04/25 13:10 Temperature 36.2 C L 05/04/25 13:10 Pulse Rate 93 05/04/25 13:10 Respiratory Rate 18 05/04/25 13:10 Blood Pressure 125/90 05/04/25 13:10 Pulse Oximetry 98 05/04/25 13:10 Oxygen Delivery Room Air 05/04/25 13:10 Reviewed MDM - Dental/Oral MDM Narrative Medical decision making narrative: Patients pain and complaint coupled with physical findings are consistant with oral infection following surgery. There are no focal signs of space occupying lesions that are compromising to the airway; no dysphagia, odynophagia, dysphonia, or dyspnea. No uvular deviation or soft palate edema. Patient is non- toxic appearing. The floor of the mouth is soft with no signs of Kwasi's Angina; no induration below mandible, no neck pain. Patient is without trismus or drooling and able to swallow secretions. Patient is felt appropriate for discharge home with dental follow up. Differential Diagnosis Differential diagnosis: Likely gingival abscess, dental caries, dental abscess, aphthous ulcer and other (Dental infection, oral sore) Medical Records Attestation: I reviewed the patient's medical records. Discharge Plan Discharge Clinical Impression: Sore gums, Dental infection Patient Disposition: Home Condition: Stable Instructions: Mouth Care (ED) Additional Instructions: Take antibiotic until it's gone. Use Magic mouthwash as directed for mouth pain. Use mouth guard on bottom teeth to prevent trauma to upper gums Avoid temperature extremes---when you eat. You may apply ice to the face to reduce pain/swelling. For pain, you may take: Tylenol 650-1000mg by mouth every 4-6 hours. Do not exceed 4000mg in 24 hours. Advil (Ibuprofen) 600 mg by mouth every 6 hours. Do not exceed 2400mg in 24 hours. Follow-up with the dentist as needed LTome antibi?ticos hasta que se acaben. Use enjuague bucal Magic seg?n las indicaciones para el dolor bucal. Use protector bucal en los dientes inferiores para evitar traumatismos en las enc?as superiores. Evite temperaturas extremas al comer. Puede aplicar hielo en la jhonny para reducir el dolor y la inflamaci?n. Para el dolor, puede monroe: Tylenol 650-1000 mg por v?a oral cada 4-6 horas. No exceda los 4000 mg en 24 horas. Advil (ibuprofeno) 600 mg por v?a oral cada 6 horas. No exceda los 2400 mg en 24 horas. Consulte con el dentista seg?n sea necesario. Patient Language: Martiniquais Prescriptions: New Magic Mouthwash (Dr. Gu) 120 mL suspension 5 ml PO QID Qty: 120 0RF Rx Instructions: diphenhydramine 12.5 mg/5 mL oral elixir 40 mL; Lidocaine Viscous 2 % mucosal solution 40 mL; Maalox 200 mg-200 mg-20 mg/5 mL oral suspension 40 mL; Per 120 mL amoxicillin-pot clavulanate 875-125 mg tablet 1 tablet PO Q12H 10 Days Qty: 20 0RF No Action gabapentin 300 mg capsule 300 mg PO DAILY Follow-up/Referrals: Cristi,KENY Mcdonald [Primary Care Provider] - 3 Days Stand Alone Forms: Work/School Release IP Time of Disposition: 13:56
== END 2025-05-04 14:00 | disposition home or self-care (01) ==
PROVIDERS: Emergency Provider Nurse Practitioner Family; PCP Physician Assistant
DX: K06.8 Other specified disorders of gingiva and edentulous alveolar ridge (principal); T81.40XA Infection following a procedure, unspecified, initial encounter; G62.9 Polyneuropathy, unspecified
CPT/HCPCS: 99213; G0463